=== PATIENT | male | born 1990 | race Caucasian/White ===

== ENCOUNTER → 2019-08-25 09:25 | Outpatient (CLI) | payer OTHER, SELFPAY ==
--- NOTE | 2019-08-25 09:31 | US_ITS ---
STUDY: SUPERFICIAL ULTRASOUND - POSTERIOR ASPECT OF THE LEFT UPPER THIGH. REASON FOR EXAM: Male, 29 years old. LEFT POSTERIOR THIGH LUMP PAINLESS NOTICED A YEAR AGO TECHNIQUE: A superficial ultrasound was performed with real-time and static hernandez-scale imaging. COMPARISON: None. FINDINGS: The palpable abnormality corresponds to a 5.9 cm x 4.4 cm x 3.5 cm mixed echogenicity soft tissue mass. A biopsy is recommended for further evaluation. US/Ext Non Vasc Limited/Soft Tiss IMPRESSION: 5.9 cm x 4.4 cm x 3.5 cm solid mass. A biopsy recommended. Electronically Signed: Sylvester Shaw, at 15:55 EDT , Service support ,
== END ==
PROVIDERS: PCP Internal Medicine; Referring Provider Internal Medicine; Visit Provider Internal Medicine
DX: R22.42 Localized swelling, mass and lump, left lower limb (principal)
CPT/HCPCS: 76882

== ENCOUNTER → 2019-09-01 15:08 | Outpatient (CLI) | payer OTHER, SELFPAY ==
[2019-09-01 13:36] VITALS: BMI 30.1
--- NOTE | 2019-09-01 14:00 | MASS_PTH ---
PATIENT: YISSEL ISBELL LOC: [facility] U#:[id number] AGE/SX: 35/M ROOM: RE09/01/[address]: Dr. Vadim Ruiz MD : 1990 BED: DIS: SPEC #: [id number] RECD: 09/01/19 15:02 STATUS: EREN KINGA #: [id number] ANISHA: 09/01/19 14:[address]: Vadim Ruiz DEPT: SURGICAL PATHOLOGY RECD BY: Ash Gaffney ENTERED: 09/02/19 07:32 SP TYPE: Mass OTHR DR: Dr. 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 See comment. AM:jyothi 09/08/19 COMMENT The differential diagnosis includes low-grade myxoid liposarcoma and myxoma. The vascular pattern and S100 staining are concerning for a myxoid liposarcoma. FISH analysis is pending and will be reported as an addendum. This case was reviewed in consultation with Dr. Bundy of [facility]. The complete report is viewable in patient's EMR. MICROSCOPIC DESCRIPTION Slides are reviewed. GROSS DESCRIPTION Received in fixative is one container labeled with the patient's name and designated biopsy of mass left posterior thigh. The specimen consists of multiple elongated fragments of cason-yellow fibroadipose tissue that in aggregate measure 1.5 x 0.3 x 0.1 cm. The specimen is totally submitted in one cassette. / SJ:jyothi 09/02/19 TC:? CPT: 11784 ADDENDUM ADDENDUM ADDENDUM ADDENDUM ADDENDUM ADDENDUM ADDENDUM ADDENDUM ADDENDUM ADDENDUM ADDENDUM ADDENDUM ADDENDUM ADDENDUM ADDENDUM 10/20/2019 11:01 ADDENDUM 10/20/2019 11:01 ADDENDUM 10/20/2019 11:01 ADDENDUM 10/20/2019 11:01 ADDENDUM 10/20/2019 11:01 Left posterior thigh mass, needle core biopsy: Myxoid liposarcoma, grade 2. 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 FISH studies for MDM2 were performed at [facility] and this study is negative. Consultative reports from [facility] and [facility] are viewable in EMR. Case has been reviewed in consultation with Dr. Weeks who concurs with the above diagnosis. IDC:[id number]
== END ==
PROVIDERS: PCP Internal Medicine; Referring Provider Surgery; Visit Provider Surgery
DX: R22.9 Localized swelling, mass and lump, unspecified (principal)
CPT/HCPCS: 88305

== ENCOUNTER → 2019-09-27 09:30 | Outpatient (CLI) | payer BC, SELFPAY ==
[2019-09-01 13:36] VITALS: BMI 30.1
--- NOTE | 2019-09-27 09:34 | MRI_ITS ---
STUDY: MRI LOWER EXTREMITY LEFT THIGH WITH AND WITHOUT CONTRAST REASON FOR EXAM: Left posterior thigh lump for one year, inconclusive biopsy in early August. TECHNIQUE: Standardized fat and water weighted pulse sequences were obtained in all 3 orthogonal planes, post contrast administration. 19ml Dotarem via IV was administered for the contrast portion of the examination. COMPARISON: Ultrasound 08/25/2019. FINDINGS: Normal subcutis adipose space. There is a well-defined mass at the medial aspect of the semitendinosus muscle near the level of the mid femoral diaphysis corresponding to the skin markers measuring 3.7 x 4.0 x 7.0 cm (AP x transverse x length). The mass is intermediate on T1 sequences (T1 axial images 16-23) and hyperintense with septations on T2 sequences (T2 coronal images 4-8). The mass demonstrates inhomogeneous contrast enhancement (postcontrast T1 axial images 16-23). There is susceptibility artifact at the posterior aspect of the mass (T2 coronal image 5) from recent biopsy. There is no edema in the musculature adjacent to the mass. Normal visualized femur. MRI/Lower Ext No Joint W/WO Cont IMPRESSION: Solid soft tissue mass at the medial aspect of the semitendinosus muscle. Although there are no specific imaging characteristics, myxoma and sarcoma are differential considerations. Electronically Signed: John Teixeira MD at 11:41 EDT Tel , Service support ,
== END ==
PROVIDERS: PCP Internal Medicine; Referring Provider Orthopaedic Surgery; Visit Provider Orthopaedic Surgery
DX: R22.42 Localized swelling, mass and lump, left lower limb (principal)
CPT/HCPCS: 73720; A9575

== ENCOUNTER → 2019-11-09 13:03 | Outpatient (CLI) | payer BC, SELFPAY ==
[2019-09-01 13:36] VITALS: BMI 30.1
--- NOTE | 2019-11-09 13:09 | CT_ITS ---
STUDY: CT CHEST WITH CONTRAST REASON FOR EXAM: Male, 29 years old. LIPOSARCOMA ON LEFT THIGH REMOVED 10/24/19, STAGING FOR SURGERY AND METS RADIATION DOSAGE (If Supplied By Facility): CTDIvol = ( 11.18 ) mGy, DLP = ( 484.94 ) mGycm TECHNIQUE: Transaxial imaging was performed following intravenous administration of IV 100mL Isovue-300. Multiplanar coronal and sagittal images were reformatted. Individualized dose optimization techniques were used for this CT. COMPARISON: None. FINDINGS: The lungs are normal. There is no demonstrated pleural abnormality. Normal heart and pericardium. Normal mediastinum. Normal hilar regions. Normal enhanced pulmonary arteries. Normal aorta arch and descending thoracic aorta. Normal osseous structures. There is no demonstrated abnormality of the visualized upper abdomen. CT/Chest WITH Contrast IMPRESSION: Normal enhanced CT Chest examination. Electronically Signed: Sylvester Shaw, at 14:40 EDT , Service support ,
--- NOTE | 2019-11-09 13:10 | CT_ITS ---
STUDY: CT ABDOMEN AND PELVIS WITH CONTRAST REASON FOR EXAM: Male, 29 years old. LIPOSARCOMA STAGING FOR SURGERY AND RADIATION, LIPOSARCOMA ON LEFT THIGH REMOVED 10/24/19 RADIATION DOSAGE (If Supplied By Facility): CTDIvol = ( 21.64 ) mGy, DLP = ( 1453.00 ) mGycm TECHNIQUE: Transaxial images were obtained from the dome of the diaphragm to the symphysis pubis without oral contrast. Oral and amp; IV Readi-CAT and amp; 100mL Isovue-300 was administered. Sagittal and coronal images were reconstructed. Individualized dose optimization techniques were used for this CT. COMPARISON: None. FINDINGS: The visualized lung bases are unremarkable. The visualized portions of the heart are within normal limits. Normal liver. Normal gallbladder and extrahepatic biliary system. Normal spleen. Normal pancreas. Normal bilateral adrenal glands. Normal right kidney. Normal left kidney. Normal visualized stomach. Normal small intestine. Normal colon. The appendix is visualized and appears normal. Normal abdominal aorta. Normal inferior vena cava. Normal retroperitoneum. Diffusely thickened urinary bladder wall although the bladder is not completely distended. Small benign-appearing bilateral inguinal lymph nodes. Normal abdominal wall. Dextroscoliosis of the lumbar spine. CT/Abdomen/Pelvis WITH Contrast IMPRESSION: Diffuse thickening of the urinary bladder wall although the bladder is not completely distended at this time. Electronically Signed: Sylvester Shaw, at 14:44 EDT , Service support ,
[2019-11-09 13:20] LABS: CREATININE FINGERSTICK 1.1 mg/dL (0.70-1.30); EGFR FINGERSTICK > 60.0000 mL/min (>60)
== END ==
PROVIDERS: PCP Internal Medicine; Referring Provider Orthopaedic Surgery; Visit Provider Orthopaedic Surgery
DX: R22.42 Localized swelling, mass and lump, left lower limb (principal)
CPT/HCPCS: 71260; 74177; Q9967

== ENCOUNTER → 2024-07-14 | Outpatient (CLI) | payer OTHER, SELFPAY ==
--- NOTE | 2024-07-14 14:05 | RAD_ITS ---
PROCEDURE: CHEST PA AND LATERAL REASON FOR EXAM: Night sweats. TECHNIQUE: Three-view PA and lateral chest. COMPARISON: None. FINDINGS: The heart size is normal. The mediastinal contour is unremarkable. The lungs are clear. The bones are unremarkable. RAD/Chest PA and Lateral IMPRESSION: NEGATIVE CHEST Reading Location: [address]
== END | disposition home or self-care (01) ==
PROVIDERS: PCP Internal Medicine; Referring Provider Internal Medicine; Visit Provider Internal Medicine
DX: R61 Generalized hyperhidrosis (principal)
CPT/HCPCS: 71046